=== PATIENT | male | born 1985 | race Caucasian/White ===

== ENCOUNTER 2018-04-29 04:31 | Inpatient (IN) | payer OTHER ==
--- NOTE | 2018-04-29 04:41 | PDOC ---
History of Present Illness - General Chief Complaint: Pain, Acute Stated Complaint: ABD PAIN Time Seen by Provider: 04/29/18 04:41 History Source: Patient Exam Limitations: No Limitations - History of Present Illness Initial Comments: 04/29/18 04:49 This is a 32-year-old male who comes in complaining of right-sided abdominal pain since yesterday evening. Patient denies any fevers or chills. Patient denies any vomiting or diarrhea. Patient said he is of some associated nausea. Patient said it began approximately 9 PM after eating sausage peppers and onions. Patient denies history of similar pain in the past. Patient has never had any surgeries on his abdomen. Patient is otherwise healthy. Patient did not take it for the pain. PAST MEDICAL HISTORY: no significant history PAST SURGICAL HISTORY: no significant history FAMILY HISTORY: no pertinant history SOCIAL HISTORY: Pt lives with family and is employed. MEDICATIONS: reviewed ALLERGIES: As per nursing notes ROS General: No fevers or chills, no weakness, no weight loss HEENT: No change in vision. No sore throat,. No ear pain CardioVascular: No chest pain or shortness of breath Respiratory:No cough, or wheezing. Gastrointestinal: + nausea, no vomiting, no diarrhea or constipation, No rectal bleeding, +abd pain Genitourinary: No dysuria, hematuria, or frequency Musculoskeletal: . No joint pain or swelling Neurologic: No headache, vertigo, dizziness or loss of consciousness Psychiatric: nor depression Skin: No rashes or easy bruising Endocrine: no increased thirst or abnormal weight change Allergic: no skin or latex allergy All other systems reviewed and normal Exam: General: Well-nourished well-developed individual, no acute distress HEENT: Throat: Normal, tonsils normal, no erythema or exudate Neck: Supple, no meningeal signs, no lymphadenopathy Eyes::Pupils equal reactive and round, extraocular motion intact Chest: Nontender to palpation Cardiac: S1-S2 normal, regular rate and rhythm, no murmurs rubs or gallops Respiratory: Lungs clear to auscultation bilateral Abdomen: Soft, nondistended, decreasedl bowel sounds, there is mod tenderness on palpation right side of abdomen with guarding and no rebound Extremities: Warm, dry, no cyanosis, clubbing, or edema Skin: No rashes Neuro: Alert and oriented x3, CN II - XII intact, nonfocal exam with normal strength, normal sensation, normal reflexes, normal gait, Psych: Normal mood and affect 06:30 Reevaluation: Patient is sleeping comfortably. Patient says he feels better however still continued discomfort in his abdomen 04/29/18 06:50 Care of this patient was transferred to Dr. Russ at 7 AM. Case discussed in detail with oncoming Emergency Physician including history, physical exam and ancillary studies. Oncoming Emergency Physician has assumed care for the patient and will complete the evaluation and treatment. Patient is aware of the plan. Pt is clinically unchanged and stable. Past History - Past Medical History Allergies/Adverse Reactions: Allergies Allergy/AdvReac Type Severity Reaction Status Date / Time Sulfa (Sulfonamide Allergy Verified 04/29/18 04:37 Antibiotics) Home Medications: Ambulatory Orders NK [No Known Home Medication] 04/29/18 COPD: No - Suicide/Smoking/Psychosocial Hx Smoking History: Never smoked Have you smoked in the past 12 months: No Number of Cigarettes Smoked Daily: 0 Information on smoking cessation initiated: No Hx Alcohol Use: No Drug/Substance Use Hx: No Substance Use Type: None *Physical Exam - Vital Signs Last Vital Signs Temp Pulse Resp BP Pulse Ox 98 F 89 14 121/76 97 04/29/18 04:33 04/29/18 04:33 04/29/18 04:33 04/29/18 04:33 04/29/18 04:33 ED Treatment Course - LABORATORY CBC & Chemistry Diagram: 04/29/18 05:09 04/29/18 05:09 *DC/Admit/Observation/Transfer Diagnosis at time of Disposition: Abdominal pain Qualifiers: Abdominal location: unspecified location Qualified Code(s): R10.9 - Unspecified abdominal pain - Discharge Dispostion Condition at time of disposition: Good - Referrals - Patient Instructions - Post Discharge Activity
[2018-04-29] MEDS ORDERED: SODIUM CHLORIDE 1,000 ML IV ONE (04:47)
[2018-04-29] MEDS ORDERED: ONDANSETRON 4 MG/2 ML VIAL IVPUSH ONE (04:48)
[2018-04-29] MEDS ORDERED: HYDROmorphone HCL CARPU-JECT 1 MG/1 ML DISP.SYRIN IVPUSH ONE ×2 (04:48→08:58)
[2018-04-29] MEDS ORDERED: HYDROmorphone HCL CARPU-JECT 1 MG/1 ML DISP.SYRIN ONE ×2 (04:56→08:59)
[2018-04-29] MEDS ORDERED: ONDANSETRON 4 MG/2 ML VIAL ONE ×2 (04:56→12:45)
[2018-04-29 05:37] LABS: URINE APPEARANCE CLEAR; URINE BILIRUBIN NEGATIVE (<2.0 mg/dL); URINE COLOR YELLOW; URINE GLUCOSE (UA) NEGATIVE (NEGATIVE); URINE KETONE NEGATIVE (NEGATIVE); URINE LEUK ESTERASE NEGATIVE (NEGATIVE); URINE NITRITE NEGATIVE (NEGATIVE); URINE PROTEIN NEGATIVE (NEGATIVE)
[2018-04-29 05:58] LABS: ALBUMIN 3.8 g/dl (3.4-5.0); ALK PHOS 69 U/L (45-117); ANION GAP 7 MMOL/L (8-16); BILIRUBIN,TOTAL 0.4 mg/dL (0.2-1); BLOOD UREA NITROGEN 10 mg/dL (7-18); CALCIUM 9.1 mg/dL (8.5-10.1); CHLORIDE 102 mmol/L (98-107); CO2 29 mmol/L (21-32); CREATININE 0.8 mg/dL (0.55-1.3); GLUCOSE,RANDOM 98 mg/dL (74-106); LIPASE 87 U/L (73-393); POTASSIUM 3.8 mmol/L (3.5-5.1); SGOT/AST 13 U/L (15-37); SGPT/ALT 16 U/L (13-61); SODIUM 138 mmol/L (136-145); TOT PROT 7.6 g/dl (6.4-8.2)
[2018-04-29 07:03] LABS: BASO % 0.5 % (0-2.0); EOS % 2.3 % (0-4.5); HEMATOCRIT 43.7 % (35.4-49); HEMOGLOBIN 14.2 GM/dL (11.7-16.9); LYMPH % 12.5 % (8-40); MCH 27.1 pg (25.7-33.7); MCHC 32.5 g/dl (32.0-35.9); MEAN CELL VOLUME 83.5 fl (80-96); MEAN PLT VOLUME 7.5 fl (7.5-11.1); MONO % 8.6 % (3.8-10.2); NEUT % 76.1 % (42.8-82.8); PLATELET COUNT 277 K/MM3 (134-434); RBC 5.23 M/mm3 (4.00-5.60); RDW 14.9 % (11.9-15.9); WHITE BLOOD COUNT 11.3 K/mm3 (4.0-10.0)
--- NOTE | 2018-04-29 08:07 | PDOC ---
*Physical Exam - Vital Signs Last Vital Signs Temp Pulse Resp BP Pulse Ox 98 F 89 14 121/76 97 04/29/18 04:33 04/29/18 04:33 04/29/18 04:33 04/29/18 04:33 04/29/18 04:33 ED Treatment Course - LABORATORY CBC & Chemistry Diagram: 04/29/18 05:09 04/29/18 05:09 - ADDITIONAL ORDERS Additional order review: Laboratory Results 04/29/18 04/29/18 05:09 05:09 Sodium 138 Potassium 3.8 Chloride 102 Carbon Dioxide 29 Anion Gap 7 L BUN 10 Creatinine 0.8 Creat Clearance w eGFR > 60 Random Glucose 98 Calcium 9.1 Total Bilirubin 0.4 AST 13 L ALT 16 Alkaline Phosphatase 69 Total Protein 7.6 Albumin 3.8 Lipase 87 Urine Color Yellow Urine Appearance Clear Urine pH 6.0 Ur Specific [place] 1.025 Urine Protein Negative Urine Glucose (UA) Negative Urine Ketones Negative Urine Blood Negative Urine Nitrite Negative Urine Bilirubin Negative Urine Urobilinogen 2.0 Ur Leukocyte Esterase Negative 04/29/18 05:09 RBC 5.23 MCV 83.5 MCHC 32.5 RDW 14.9 MPV 7.5 Neutrophils % 76.1 Lymphocytes % 12.5 Monocytes % 8.6 Eosinophils % 2.3 Basophils % 0.5 - Medications Given in the ED: ED Medications Discontinued Medications Generic Name Dose Route Start Last Admin Trade Name Freq PRN Reason Stop Dose Admin Hydromorphone HCl 1 mg 04/29/18 04:48 04/29/18 04:54 Dilaudid Injection - IVPUSH 04/29/18 04:49 1 mg ONCE ONE Administration Sodium Chloride 1,000 mls @ 1,000 mls/hr 04/29/18 04:47 04/29/18 04:54 Normal Saline - IV 04/29/18 05:46 1,000 mls/hr .Q1H ONE Administration Ondansetron HCl 4 mg 04/29/18 04:48 04/29/18 04:55 Zofran Injection IVPUSH 04/29/18 04:49 4 mg ONCE ONE Administration Medical Decision Making - Medical Decision Making 04/29/18 08:05 Pt signed out to me at 7am. 32 M with no PMH presenting with abdominal pain since last night. - Labs notable for WBC 11 - CT shows SBO with transition point at terminal ileum, where pt has thickening of bowel wall suggestive of inflammatory process. - Hyperemia of cecum and appendix noted to be likely part of generalized inflammatory process, unlikely primary appendicitis Pt denies any history of IBD. No FH of IBD. No prior surgical history. However, pt does note that he had an episode of "inflamed intestine" last year that was tx'ed with abx. Pt re-evaluated. Denies N/V. States pain has improved but is persistent. Surgery paged. Will admit to hospitalist. 04/29/18 08:23 Dr. Michael aware of pt 04/29/18 08:33 Pt admitted to hospitalist. *DC/Admit/Observation/Transfer Diagnosis at time of Disposition: SBO (small bowel obstruction), Inflammatory bowel disease Abdominal pain Qualifiers: Abdominal location: unspecified location Qualified Code(s): R10.9 - Unspecified abdominal pain - Discharge Dispostion Condition at time of disposition: Good Decision to Admit order: Yes - Referrals - Patient Instructions - Post Discharge Activity - Attestations Physician Attestion: 04/29/18 08:34 I, Dr. Rodolfo Corrigan MD, attest that this document has been prepared under my direction and personally reviewed by me in its entirety. I further attest, that it accurately reflects all work, treatment, procedures and medical decision -making performed by me.
[2018-04-29 08:09] LABS: BASO % 0.5 % (0-2.0); EOS % 2.3 % (0-4.5); HEMATOCRIT 43.1 % (35.4-49); HEMOGLOBIN 13.9 GM/dL (11.7-16.9); LYMPH % 12.3 % (8-40); MCH 26.9 pg (25.7-33.7); MCHC 32.3 g/dl (32.0-35.9); MEAN CELL VOLUME 83.4 fl (80-96); MEAN PLT VOLUME 7.3 fl (7.5-11.1); MONO % 8.8 % (3.8-10.2); NEUT % 76.1 % (42.8-82.8); PLATELET COUNT 273 K/MM3 (134-434); RBC 5.17 M/mm3 (4.00-5.60); RDW 14.8 % (11.9-15.9); WHITE BLOOD COUNT 11.7 K/mm3 (4.0-10.0)
[2018-04-29] MEDS ORDERED: SODIUM CHLORIDE 1,000 ML IV SCH (08:15)
[2018-04-29] MEDS ORDERED: SODIUM CHLORIDE 1,000 ML IV STA (08:35)
--- NOTE | 2018-04-29 08:58 | HP ---
CHIEF COMPLAINT: abdominal pain PCP: none HISTORY OF PRESENT ILLNESS: Patient is a 32 y/o male with no Significant past medical history. Patient reports sharp diffuse abdominal pain since yesterday ( 04/28) evening with some nausea. He first associated these symptoms with sausage and peppers that he ate for dinner. Patient also reports last week he developed diffuse abdominal cramping but the episode resolved spontaneously. Patient denies any diarherra, he reports feeling constipated within the past 24 hours. Patient does report feeling increasingly stressed within the past week secondarily to his upcoming wedding on 05/15/18. Of note, patient reports similar episode last year that resolved with IV antibiotics. ER course was notable for: (1)ct of chest abd/pelvis w/contrast: Significant thickening and hyperemia of the distal portion of the terminal ileum suggestive of inflammatory versus infectious process. Likely causing small bowel obstruction. 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 [employer] Smoking:none Alcohol:none Drugs: none Family History: mother-->irritable bowel disease, alive father--->alive and well brother-->alive and well Allergies Sulfa (Sulfonamide Antibiotics) Allergy (Verified 04/29/18 04:37) HOME MEDICATIONS: Home Medications Medication Instructions Recorded NK [No Known Home Medication] 04/29/18 REVIEW OF SYSTEMS CONSTITUTIONAL: Absent: fever, chills, diaphoresis, generalized weakness, malaise, loss of appetite, weight change HEENT: Absent: rhinorrhea, nasal congestion, throat pain, throat swelling, difficulty swallowing, mouth swelling, ear pain, eye pain, visual changes CARDIOVASCULAR: Absent: chest pain, syncope, palpitations, irregular heart rate, lightheadedness , peripheral edema RESPIRATORY: Absent: cough, shortness of breath, dyspnea with exertion, orthopnea, wheezing, stridor, hemoptysis GASTROINTESTINAL: present: abdominal pain, nausea Absent: abdominal distension, vomiting, diarrhea, constipation, melena, hematochezia GENITOURINARY: Absent: dysuria, frequency, urgency, hesitancy, hematuria, flank pain, genital pain MUSCULOSKELETAL: Absent: myalgia, arthralgia, joint swelling, back pain, neck pain SKIN: Absent: rash, itching, pallor HEMATOLOGIC/IMMUNOLOGIC: Absent: easy bleeding, easy bruising, lymphadenopathy, frequent infections ENDOCRINE: Absent: unexplained weight gain, unexplained weight loss, heat intolerance, cold intolerance NEUROLOGIC: Absent: headache, focal weakness or paresthesias, dizziness, unsteady gait, seizure, mental status changes, bladder or bowel incontinence PSYCHIATRIC: Absent: anxiety, depression, suicidal or homicidal ideation, hallucinations. PHYSICAL EXAMINATION Vital Signs - 24 hr 04/29/18 04/29/18 04:33 08:31 Temperature 98 F 98.4 F Pulse Rate 89 Pulse Rate [ 67 Right] Respiratory 14 16 Rate Blood Pressure 121/76 Blood Pressure 88/45 L [Left Arm] O2 Sat by Pulse 97 99 Oximetry (%) GENERAL: Awake, alert, and fully oriented, in no acute distress. HEAD: Normal with no signs of trauma. EYES: Pupils equal, round and reactive to light, extraocular movements intact, sclera anicteric, conjunctiva clear. No lid lag. EARS, NOSE, THROAT: Ears normal, nares patent, oropharynx clear without exudates. Moist mucous membranes. NECK: Normal range of motion, supple without lymphadenopathy, JVD, or masses. LUNGS: Breath sounds equal, clear to auscultation bilaterally. No wheezes, and no crackles. No accessory muscle use. HEART: Regular rate and rhythm, normal S1 and S2 without murmur, rub or gallop. ABDOMEN: Soft, hypoactive bowel sounds, diffuse abdominal tenderness, not distended, no guarding, no rebound, no masses. No hepatomegaly or splenomegaly. MUSCULOSKELETAL: Normal range of motion at all joints. No bony deformities or tenderness. No CVA tenderness. UPPER EXTREMITIES: 2+ pulses, warm, well-perfused. No cyanosis. No clubbing. No peripheral edema. LOWER EXTREMITIES: 2+ pulses, warm, well-perfused. No calf tenderness. No peripheral edema. NEUROLOGICAL: Cranial nerves II-XII intact. Normal speech. Normal gait. PSYCHIATRIC: Cooperative. Good eye contact. Appropriate mood and affect. SKIN: Warm, dry, normal turgor, no rashes or lesions noted, normal capillary refill. Laboratory Results - last 24 hr 04/29/18 04/29/18 04/29/18 05:09 05:09 05:09 WBC 11.7 H RBC 5.17 Hgb 13.9 Hct 43.1 MCV 83.4 MCH 26.9 MCHC 32.3 RDW 14.8 Plt Count 273 MPV 7.3 L Absolute Neuts (auto) 8.9 H Neutrophils % 76.1 Lymphocytes % 12.3 Monocytes % 8.8 Eosinophils % 2.3 Basophils % 0.5 Nucleated RBC % 0 Sodium 138 Potassium 3.8 Chloride 102 Carbon Dioxide 29 Anion Gap 7 L BUN 10 Creatinine 0.8 Creat Clearance w eGFR > 60 Random Glucose 98 Calcium 9.1 Total Bilirubin 0.4 AST 13 L ALT 16 Alkaline Phosphatase 69 Total Protein 7.6 Albumin 3.8 Lipase 87 Urine Color Yellow Urine Appearance Clear Urine pH 6.0 Ur Specific [place] 1.025 Urine Protein Negative Urine Glucose (UA) Negative Urine Ketones Negative Urine Blood Negative Urine Nitrite Negative Urine Bilirubin Negative Urine Urobilinogen 2.0 Ur Leukocyte Esterase Negative 04/29/18 05:09 WBC 11.3 H RBC 5.23 Hgb 14.2 Hct 43.7 MCV 83.5 MCH 27.1 MCHC 32.5 RDW 14.9 Plt Count 277 MPV 7.5 Absolute Neuts (auto) 8.6 H Neutrophils % 76.1 Lymphocytes % 12.5 Monocytes % 8.6 Eosinophils % 2.3 Basophils % 0.5 Nucleated RBC % 0 Sodium Potassium Chloride Carbon Dioxide Anion Gap BUN Creatinine Creat Clearance w eGFR Random Glucose Calcium Total Bilirubin AST ALT Alkaline Phosphatase Total Protein Albumin Lipase Urine Color Urine Appearance Urine pH Ur Specific [place] Urine Protein Urine Glucose (UA) Urine Ketones Urine Blood Urine Nitrite Urine Bilirubin Urine Urobilinogen Ur Leukocyte Esterase ASSESSMENT/PLAN: 1) GI SBO - likely secondary to inflammatory process, ct scan of abd review ?ibs vs infectious, will treat with empirc abx, trend wbc and fever curve - npo--->ivf - appreciate GI and surgery input f/e/n - replete electrolytes prn - npo - ivf ppx - oob - pepcid dispo: pt requires inpatient admission Visit type - Emergency Visit Emergency Visit: Yes ED Registration Date: 04/29/18 Care time: The patient presented to the Emergency Department on the above date and was hospitalized for further evaluation of their emergent condition. - New Patient This patient is new to me today: Yes Date on this admission: 04/29/18 - Critical Care Critical Care patient: No
[2018-04-29] MEDS ORDERED: FAMOTIDINE 20 MG/50 ML IVPB 20 MG/50 ML MG IVPB ONE (09:40)
[2018-04-29] MEDS ORDERED: cefTRIAXone SODIUM 1 GM VIAL ONE (09:41)
[2018-04-29] MEDS: FAMOTIDINE 20 MG/50 ML IVPB 20 MG/50 ML MG IVPB SCH ×2 (09:54→22:44)
[2018-04-29] MEDS: SODIUM CHLORIDE 0.9%/KCL 20 MEQ/1,000 ML INFUS.BAG IV SCH (10:33)
[2018-04-29] MEDS: CEFTRIAXONE 1 GM/50 ML BAG IVPB SCH (11:24)
--- NOTE | 2018-04-29 11:47 | EKG ---
Test Reason : Blood Pressure : / mmHG Vent. Rate : 061 BPM Atrial Rate : 061 BPM P-R Int : 166 ms QRS Dur : 088 ms QT Int : 402 ms P-R-T Axes : 085 100 067 degrees QTc Int : 404 ms NORMAL SINUS RHYTHM RIGHTWARD AXIS BORDERLINE ECG NO PREVIOUS ECGS AVAILABLE Confirmed by CADENCE TEMPLETON, MONIQUE ([id number]) on 04/29/2018 11:47:22 AM Referred By: NICHOLAS MISHRA Confirmed By:MONIQUE VILA MD
[2018-04-29] MEDS: ONDANSETRON 4 MG/2 ML VIAL IVPB PRN (12:48)
[2018-04-29 13:53] VITALS: BMI 21.1
[2018-04-29] MEDS: morphine SULFATE 4 MG/ML VIAL IVPB PRN (14:13)
--- NOTE | 2018-04-29 16:13 | PN ---
Progress Note (short form) - Note Progress Note: Patient seen and consult dictated. 32 yo male with 1-2 days of abdominal discomfort , bloating and DT c/w partial SBO with inflammatory changes in TI, cecum and ascending colon ?infectious vs IBD. Agree with IV antibiotics and NPO If increased distention, pain, vomiting, may need NG tube for decompression. Would obtain FUA in am and repeat labs.
--- NOTE | 2018-04-29 16:58 | CONS ---
DATE OF CONSULTATION: 04/29/2018 Asked to evaluate this 32-year-old gentleman admitted with abdominal pain and a possible bowel obstruction. The patient is a 32-year-old gentleman who has been generally healthy and active. He was admitted with a 1-day history of abdominal pain, bloating, and feeling of nausea via the emergency room. He may have had some mild abdominal discomfort 1 week earlier. In addition, 1 year ago, he was hospitalized at [facility] with similar GI complaints which resolved spontaneously, and he was asymptomatic throughout the year. In the emergency room, the patient had a CAT scan which was read as showing a significant thickening in the terminal ileum as well as thickening of the cecum and ascending colon. The appendix appeared normal. There was a suggestion of partial small-bowel obstruction proximal to the ileum. The patient had no fever or chills. His white count was 11.7 with a hemoglobin of 13.9 and hematocrit of 43.1. His chemistries were unremarkable with normal lipase and liver chemistries. The patient has been started on IV antibiotics and is currently n.p.o. He has not passed any stool or gas. He does have complaints of slight bloating but no nausea or cramps. PHYSICAL EXAMINATION: General: He is a well-developed, well-nourished gentleman. HEENT: [place] conjunctiva. Vital Signs: Stable. He is afebrile. Lungs: Clear. Cardiac: Regular rate and rhythm. Abdomen: Decreased bowel sounds, mild distention, and slight tympani. There is a fullness in the right lower quadrant with mild tenderness but no rebound. Patient with inflammatory changes in the right lower quadrant including the terminal ileum, cecum, and ascending colon on CAT scan with a mild leukocytosis. Patient currently on both metronidazole and ceftriaxone. Appears to have a partial small-bowel obstruction clinically and radiographically. Differential diagnosis incudes an inflammatory process such as inflammatory bowel disease or Crohn's versus an infectious etiology, the latter being more likely. His episode 1 year ago is of note and may be a similar clinical presentation to the current episode. However, the rapid resolution and the lack of symptoms in between suggests against inflammatory bowel disease. Currently will follow on IV antibiotics, and hopefully, the patient's bowel edema will subside and he will be able to start to have more active bowel sounds and function. CRISTO HAYNES M.D. ENRIQUE/[id number]
--- NOTE | 2018-04-29 17:13 | CONSULT ---
Consult Consult Specialty:: General Surgery Reason for Consultation:: SBO on imaging - History of Present Illness Chief Complaint: abdominal pain and SBO History of Present Illness: 32 yo male no Significant PMH patient reports sharp diffuse abdominal pain since yesterday evening with some nausea. He first associated these symptoms with sausage and peppers that he ate for dinner. This is the second such episode he has experienced, the first was last year january which required hospitalization but was resolevd with bowel rest and IV antibiotics. Patient also reports last week he developed diffuse abdominal cramping but the episode resolved spontaneously. Patient denies any diarherra, he reports feeling constipated within the past 24 hours. Patient does report feeling increasingly stressed within the past week secondarily to his upcoming wedding on 05/15/18. He has not had a previous colonoscopy. Family history of IBS ( monthviktor). Denies family history of IBD. We were asked to assess. - History Source History Provided By: Patient, Medical Record Limitations to Obtaining History: No Limitations - Alcohol/Substance Use Hx Alcohol Use: Yes (rare) - Smoking History Smoking history: Current every day smoker Have you smoked in the past 12 months: Yes Aproximately how many cigarettes per day: 10 Home Medications - Allergies Allergies/Adverse Reactions: Allergies Allergy/AdvReac Type Severity Reaction Status Date / Time Sulfa (Sulfonamide Allergy Verified 04/29/18 04:37 Antibiotics) - Home Medications Home Medications: Ambulatory Orders NK [No Known Home Medication] 04/29/18 Review of Systems - Review of Systems Constitutional: denies: Chills, Fever Eyes: denies: Blind Spots, Recent Change in Vision HENT: denies: Difficult Swallowing, Throat Pain Neck: denies: Decreased ROM, Tenderness Cardiovascular: denies: Chest Pain, Palpitations Respiratory: denies: Cough, SOB Gastrointestinal: denies: Abdominal Pain, Constipation, Diarrhea Genitourinary: denies: Discharge, Dysuria Breasts: reports: No Symptoms Reported. denies: Pain Musculoskeletal: denies: Muscle Pain, Muscle Cramps, Muscle Weakness Integumentary: denies: Lesions, Pallor, Rash Neurological: denies: Seizure, Syncope, Weakness Endocrine: denies: Unexplained Weight Gain, Unexplained Weight Loss Hematology/Lymphatic: denies: Easily Bruised, Excessive Bleeding Psychiatric: denies: Anxiety, Depression Physical Exam Vital Signs: Vital Signs Temperature 97.9 F 04/29/18 13:32 Pulse Rate 75 04/29/18 13:32 Respiratory Rate 16 04/29/18 13:32 Blood Pressure 104/57 L 04/29/18 13:32 O2 Sat by Pulse Oximetry (%) 99 04/29/18 12:48 Constitutional: Yes: Well Nourished, No Distress, Calm Eyes: Yes: Conjunctiva Clear, EOM Intact HENT: Yes: Atraumatic, Normocephalic Neck: Yes: Supple, Trachea Midline Cardiovascular: Yes: Regular Rate and Rhythm, S1, S2 Respiratory: Yes: Regular, CTA Bilaterally Gastrointestinal: Yes: Normal Bowel Sounds, Soft, Tenderness (RLQ and RUQ). No : Tenderness, Epigastrium, Tenderness, Rebound ...Rectal Exam: Yes: Sphincter Tone Normal. No: Mass Renal/: No: CVA Tenderness - Left, CVA Tenderness - Right Extremities: No: Cool, Cyanosis Edema: No Peripheral Pulses WNL: Yes Integumentary: No: Jaundice, Pressure Ulcer, Rash Neurological: Yes: Alert, Oriented Psychiatric: Yes: Alert, Oriented Labs: CBC, BMP 04/29/18 05:09 04/29/18 05:09 Imaging - Results Cat Scan: Report Reviewed, Image Reviewed (edematous small and large bowel, right side of the abodomen) Problem List - Problems (1) Abdominal pain Assessment/Plan: 32yo with like episode of inflammatory bowel disease, no pathological diagnosis. He will not need acute surgical intervention. Bowel rest Diet as tolerated adequate analgesia IV antibotics f/u for endoscopy with GI Thank you for the opportunity to participate in the care of this patient. Code(s): R10.9 - UNSPECIFIED ABDOMINAL PAIN Qualifiers: Abdominal location: right upper quadrant Qualified Code(s): R10.11 - Right upper quadrant pain (2) Inflammatory bowel disease Code(s): K52.9 - NONINFECTIVE GASTROENTERITIS AND COLITIS, UNSPECIFIED (3) SBO (small bowel obstruction) Code(s): K56.609 - UNSP INTESTNL OBST, UNSP TO PARTIAL VERSUS COMPLETE OBST
[2018-04-30] MEDS: morphine SULFATE 4 MG/ML VIAL IVPB PRN (00:27)
[2018-04-30] MEDS: ONDANSETRON 4 MG/2 ML VIAL IVPB PRN (00:35)
--- NOTE | 2018-04-30 08:43 | PN ---
Physical Exam: SUBJECTIVE: Patient seen and examined, patient is ambulatory throughout nursing station, reports passing flatus, denies abdominal pain OBJECTIVE:Patient is a 32 y/o male with no Significant past medical history, admitted from the emergency department to medical surgical floor for SBO. Vital Signs Period Temp Pulse Resp BP Sys/Aviles Pulse Ox Last 24 Hr 97.8 F-98.7 F 62-75 16-18 104-112/49-71 99-100 GENERAL: The patient is awake, alert, and fully oriented, in no acute distress. HEAD: Normal with no signs of trauma. EYES: PERRL, extraocular movements intact, sclera anicteric, conjunctiva clear. No ptosis. ENT: Ears normal, nares patent, oropharynx clear without exudates, moist mucous membranes. NECK: Trachea midline, full range of motion, supple. LUNGS: Breath sounds equal, clear to auscultation bilaterally, no wheezes, no crackles, no accessory muscle use. HEART: Regular rate and rhythm, S1, S2 without murmur, rub or gallop. ABDOMEN: Soft, nontender, nondistended, hypoactive bowel sounds, no guarding, no rebound, no hepatosplenomegaly, no masses. EXTREMITIES: 2+ pulses, warm, well-perfused, no edema. NEUROLOGICAL: Cranial nerves II through XII grossly intact. Normal speech, gait not observed. PSYCH: Normal mood, normal affect. SKIN: Warm, dry, normal turgor, no rashes or lesions noted Active Medications Generic Name Dose Route Start Last Admin Trade Name Freq PRN Reason Stop Dose Admin Famotidine/Sodium Chloride 20 mg in 50 mls @ 100 mls/hr 04/29/18 10:00 22:44 Pepcid 20 Mg Premixed Ivpb - IVPB 100 mls/hr BID BLANE Administration Potassium Chloride/Sodium Chloride 20 meq in 1,000 mls @ 100 mls/hr 04/29/18 09:45 04/29/18 10:33 Ns+20 Meq Kcl - IV 100 mls/hr ASDIR BLANE Administration Ceftriaxone Sodium 1 gm in 50 mls @ 100 mls/hr 04/29/18 11:00 04/29/18 11:24 Rocephin 1gm Ivpb (Pre-Docked) IVPB 100 mls/hr DAILY BLANE Administration Protocol Metronidazole 500 mg in 100 mls @ 100 mls/hr 04/29/18 10:00 04/30/18 01:38 Flagyl 500mg Premixed Ivpb - IVPB 100 mls/hr Q8H-IV BLANE Administration Morphine Sulfate 4 mg 04/29/18 09:43 04/30/18 00:27 Morphine Sulfate IVPB 4 mg Q6H PRN Administration PAIN LEVEL 7 - 10 Ondansetron HCl 4 mg 04/29/18 09:43 04/30/18 00:35 Zofran Injection IVPB 4 mg Q6H PRN Administration NAUSEA AND/OR VOMITING IMAGING ct of chest abd/pelvis w/contrast: Significant thickening and hyperemia of the distal portion of the terminal ileum suggestive of inflammatory versus infectious process. Likely causing small bowel obstruction. Dilation of the distal small bowel loop, proximal to the terminal ileum measuring 5.5 cm xray of abdomen: no evidence Of pneumoperitoneum, dilated loops small bowel in left mid abdomen with several air-fluid levels air seen in the right colon, partial small bowel obstruction ASSESSMENT/PLAN: 1) GI SBO infectius vs inflammatory - resolving, xray reviewed with surgeon Dr Michael, no abdominal pain on exam, will start clear liquids - continue empiric abx - GI and surgery consulted and following - appreciate GI and surgery input f/e/n - replete electrolytes prn - clear liquid diet will advance as tolerated - ivf ppx - oob - pepcid dispo: pt requires inpatient admission
[2018-04-30] MEDS: CEFTRIAXONE 1 GM/50 ML BAG IVPB SCH (10:34)
[2018-04-30] MEDS: FAMOTIDINE 20 MG/50 ML IVPB 20 MG/50 ML MG IVPB SCH ×2 (10:34→22:20)
[2018-04-30] MEDS: SODIUM CHLORIDE 0.9%/KCL 20 MEQ/1,000 ML INFUS.BAG IV SCH (10:35)
[2018-04-30] MEDS ORDERED: SODIUM CHLORIDE 0.9%/KCL 20 MEQ/1,000 ML INFUS.BAG IV SCH (13:39)
[2018-04-30 14:38] LABS: ANION GAP 1 MMOL/L (8-16); BLOOD UREA NITROGEN 6 mg/dl (7-18); CALCIUM 8.3 mg/dl (8.4-10.2); CHLORIDE 104 mmol/L (98-107); CO2 28 mmol/L (22-28); CREATININE 0.8 mg/dl (0.6-1.3); GLUCOSE,RANDOM 85 mg/dl (74-106); PHOSPHOROUS 3.4 mg/dl (2.5-4.6); SODIUM 133 mmol/L (136-145)
[2018-04-30 14:53] LABS: BASO % 0.4 % (0-2.0); EOS % 5.2 % (0-4.5); HEMATOCRIT 36.4 % (35.4-49); HEMOGLOBIN 12.1 GM/dl (11.7-16.9); MCH 27.9 pg (25.7-33.7); MCHC 33.1 g/dl (32.0-35.9); MEAN CELL VOLUME 84.3 fl (80-96); MEAN PLT VOLUME 7.7 fl (7.5-11.1); NEUT % 63.4 % (42.8-82.8); PLATELET COUNT 223 K/MM3 (134-434); RBC 4.32 M/mm3 (4.00-5.60); RDW 14.3 % (11.9-15.9); WHITE BLOOD COUNT 5.1 K/mm3 (4.0-10.8)
--- NOTE | 2018-04-30 15:05 | PN ---
Progress Note (short form) - Note Progress Note: Patient feels better with decreased abdominal pain, bloating. Tolerated clear liquid diet. AXR c/w partial SBO VSS Afebrile on IV antibiotics. WBC 11-12K Abdomen soft +BS less distended and less RLQ discomfort Appears to be improving on current regimen of antibiotics (c/w infectious cause of RLQ edema/swelling) Would advance to full liquids PO and repeat AXR in am along with CBC. Continue IV antibiotics for at least another 1-2 days and if continues to improve, can switch to PO (?Cipro/Flagyl). Outpatient followup will include IBD panel, CRP and probable colonoscopy to evaluate TI.
[2018-04-30 15:11] LABS: POTASSIUM 3.9 mmol/L (3.5-5.1)
[2018-05-01 06:16] VITALS: BP 101/57; PULSE 57; TEMP 97.8
[2018-05-01 08:43] LABS: BASO % 0.5 % (0-2.0); EOS % 9.6 % (0-4.5); HEMATOCRIT 34.9 % (35.4-49); HEMOGLOBIN 11.6 GM/dl (11.7-16.9); LYMPH % 29.4 % (8-40); MCH 28.2 pg (25.7-33.7); MCHC 33.3 g/dl (32.0-35.9); MEAN CELL VOLUME 84.7 fl (80-96); MEAN PLT VOLUME 7.8 fl (7.5-11.1); MONO % 11.2 % (3.8-10.2); NEUT % 49.3 % (42.8-82.8); PLATELET COUNT 222 K/MM3 (134-434); RBC 4.12 M/mm3 (4.00-5.60); RDW 13.5 % (11.9-15.9); WHITE BLOOD COUNT 3.8 K/mm3 (4.0-10.8)
[2018-05-01 08:45] LABS: ANION GAP 7 MMOL/L (8-16); BLOOD UREA NITROGEN 7 mg/dl (7-18); CALCIUM 8.4 mg/dl (8.4-10.2); CHLORIDE 102 mmol/L (98-107); CO2 28 mmol/L (22-28); CREATININE 0.8 mg/dl (0.6-1.3); GLUCOSE,RANDOM 75 mg/dl (74-106); POTASSIUM 4.1 mmol/L (3.5-5.1); SODIUM 137 mmol/L (136-145)
--- NOTE | 2018-05-01 10:29 | DS ---
Physical Examination Vital Signs: Vital Signs Temperature 97.8 F 05/01/18 06:00 Pulse Rate 57 L 05/01/18 06:00 Respiratory Rate 18 05/01/18 08:37 Blood Pressure 101/57 L 05/01/18 06:00 O2 Sat by Pulse Oximetry (%) 99 05/01/18 08:37 Findings/Remarks: General: NAD, A&Ox3 Lungs: CTA bilaterally Heart: RRR, S1S2 Abd: Soft, non-tender, non-distended. Normoactive bowel sounds Labs: CBC, BMP 05/01/18 07:20 05/01/18 07:20 Discharge Summary Reason For Visit: ABDOMINAL PAIN/SBO/INFLAMMATORY BOWEL DISEASE Current Active Problems Abdominal pain (Acute) Inflammatory bowel disease (Acute) SBO (small bowel obstruction) (Acute) Hospital Course: This is a 32 year old male with no significant PMHx who presented to the ED with abdominal pain and nausea and was found to have a partial SBO. Imaging: ct of chest abd/pelvis w/contrast: Significant thickening and hyperemia of the distal portion of the terminal ileum suggestive of inflammatory versus infectious process. Likely causing small bowel obstruction. Dilation of the distal small bowel loop, proximal to the terminal ileum measuring 5.5 cm xray of abdomen: no evidence Of pneumoperitoneum, dilated loops small bowel in left mid abdomen with several air-fluid levels air seen in the right colon, partial small bowel obstruction Plan 1) GI SBO infectious vs inflammatory - Had formed bowel movement this morning - Normoactive bowel sounds - No abdominal pain since night - Continue empiric antibioics - Can d/c once tolerating regular diet - F/u outpatient with Dr. Gonzalez Condition: Improved - Instructions Diet, Activity, Other Instructions: Please return to the ED with new, persistent, or worsening symptoms. Please follow-up with providers as indicated. Antibiotics: Pleas continue to take the full course of antibiotics, do not stop taking them abruptly. Ciprofloxacin 500mg by mouth twice a day for 10 days. Flagyl 500mg by mouth three times a day for 10 days. Diet: Regular diet as tolerated. Referrals: Sam Gonzalez MD [Staff Physician] - Billy Michael MD [Staff Physician] - Disposition: HOME - Home Medications Comprehensive Discharge Medication List: Ambulatory Orders Ciprofloxacin [Cipro -] 500 mg PO Q12H #20 tablet 05/01/18 metroNIDAZOLE [Flagyl -] 500 mg PO TID #30 tablet 05/01/18 This patient is new to me today: Yes Date on this admission: 05/01/18 Emergency Visit: Yes ED Registration Date: 04/29/18 Care time: The patient presented to the Emergency Department on the above date and was hospitalized for further evaluation of their emergent condition. Critical Care patient: No - Discharge Referral Referred to [facility] No
== END 2018-05-01 11:00 | disposition home or self-care (01) | DRG 390 ==
LOC: FER 04:31 → FM/S 08:34
PROVIDERS: ADMIT Internal Medicine; ATTEND Nurse Practitioner Family
DX: K56.609 Unspecified intestinal obstruction, unspecified as to partial versus complete obstruction (principal); K52.9 Noninfective gastroenteritis and colitis, unspecified; F17.210 Nicotine dependence, cigarettes, uncomplicated
CPT/HCPCS: 36415; 71046-TC-FY; 74019-TC-FY; 74177-TC; 80048; 80053; 81003; 83690; 83735; 84100; 85025; 93005; 99284-25; J7030